=== PATIENT | male | born 1965 | race Caucasian/White ===

== ENCOUNTER 2016-09-27 00:51 | Emergency (ER) | payer BC ==
[~2016-09-27] VITALS: Ht 180.3 cm; Wt 88.6 kg
[~2016-09-27 00:51] MED LIST: ASPIRIN 32325 MG/TAB PO; LEVAQUIN 750MG750 M1 PO; NORCO 325 MG-51 TAB PO; PERCOCET 325 MG1 TA2 PO; PERCOCET 325 MG1 TA3 PO; PREDNISONE20 MG PO; RT ADVAIR 228 DISKUS IH; RT SPIRIVA18 MCG IH; TYLENOL 8 HR PO
[2016-09-27 00:57] VITALS: TEMP 97.7
[2016-09-27 01:51] LABS: BASO # 0.1 (0.0-0.2); BASO % 0.6 % (0.0-2.0); EOS # 0.4 (0.0-0.7); EOS % 4.4 % (0-4.0); GRAN # 5.7 (1.4-6.5); GRAN % 70.8 % (42.2-75.2); HEMATOCRIT 41.6 % (42.0-52.0); HEMOGLOBIN 14.5 g/dl (13.5-18.0); LYMPH # 1.3 (1.2-3.4); LYMPH % 16.3 % (20.0-51.0); MEAN CELL VOLUME 96 fl (80.0-100.0); MEAN CORPUSCULAR HEMOGLOBIN 34 pg (27.0-31.0); MEAN CORPUSCULAR HGB CONC 35 g/dl (33.0-37.0); MEAN PLATELET VOLUME 8.8 fl (7.4-10.4); MONO # 0.6 (0.1-0.6); MONO % 7.6 % (1.7-9.3); PLATELET COUNT 186 K/mm3 (130-400); RED BLOOD COUNT 4.32 M/mm3 (4.20-5.60); REDCELL DISTRIBUTION WIDTH-CV 12.9 % (11.5-14.5)
[2016-09-27 01:55] LABS: PROTHROMBIN TIME 10.7 SECONDS (9.7-12.8)
[2016-09-27 01:57] LABS: PARTIAL THROMBOPLASTIN TIME 28.6 SECONDS (26.0-37.0)
[2016-09-27 02:03] LABS: ADJUSTED CALCIUM 9.5 mg/dL (8.4-10.2); BILIRUBIN,TOTAL 0.8 mg/dL (0.0-1.0); CALCIUM 9.5 mg/dL (8.4-10.2); CREATININE, serum 0.8 mg/dL (0.66-1.25); POTASSIUM 4.4 mmol/L (3.4-5.0); TOTAL PROTEIN 7.3 gm/dL (6.4-8.2)
[2016-09-27] MEDS ORDERED: PERCOCET 325 MG1 TA2 PO (03:19)
[2016-09-27 03:26] VITALS: BP 119/95; PULSE 64
== END 2016-09-27 04:28 | disposition home or self-care (01) ==
LOC: COL.ER 00:51
PROVIDERS: Emergency Medicine
DX: S20.411A Abrasion of right back wall of thorax, initial encounter (principal); S20.221A Contusion of right back wall of thorax, initial encounter; S30.810A Abrasion of lower back and pelvis, initial encounter; S30.0XXA Contusion of lower back and pelvis, initial encounter; S00.81XA Abrasion of other part of head, initial encounter; S00.83XA Contusion of other part of head, initial encounter; Z87.891 Personal history of nicotine dependence; V48.4XXA Person boarding or alighting a car injured in noncollision transport accident, initial encounter; Y92.488 Other paved roadways as the place of occurrence of the external cause; J43.8 Other emphysema; J98.11 Atelectasis
CPT/HCPCS: A9284; J1170; J3010; J7030; Q9967

== ENCOUNTER 2019-03-07 15:51 | Emergency (ER) | payer BC ==
[~2019-03-07] VITALS: Ht 177.8 cm; Wt 95.5 kg
[2019-03-07 16:09] VITALS: BP 120/88
[2019-03-07 18:33] LABS: COLLECTION METHOD CLEAN CATCH
[2019-03-07 18:38] LABS: BASO # 0.1 (0.0-0.2); BASO % 0.7 % (0.0-2.0); EOS # 0.3 (0.0-0.7); EOS % 3.5 % (0-4.0); GRAN # 6.2 (1.4-6.5); GRAN % 74.5 % (42.2-75.2); HEMATOCRIT 41.2 % (42.0-52.0); HEMOGLOBIN 14.1 g/dl (13.5-18.0); LYMPH # 1.1 (1.2-3.4); LYMPH % 12.9 % (20.0-51.0); MEAN CELL VOLUME 92 fl (80.0-100.0); MEAN CORPUSCULAR HEMOGLOBIN 32 pg (27.0-31.0); MEAN CORPUSCULAR HGB CONC 34 g/dl (33.0-37.0); MEAN PLATELET VOLUME 9.1 fl (7.4-10.4); MONO # 0.7 (0.1-0.6); PLATELET COUNT 214 K/mm3 (130-400); RED BLOOD COUNT 4.47 M/mm3 (4.20-5.60); REDCELL DISTRIBUTION WIDTH-CV 12.8 % (11.5-14.5)
[2019-03-07 18:41] LABS: MUCOUS Present /lpf; PH 6 (5-8); SQUAMOUS EPITHELIAL None Seen /hpf; URINE APPEARANCE Clear; URINE BACTERIA None Seen /hpf; URINE BILIRUBIN Negative (NEGATIVE); URINE BLOOD Negative (NEGATIVE); URINE COLOR Straw; URINE GLUCOSE Negative (NEGATIVE); URINE KETONE Negative (NEGATIVE); URINE LEUKOCYTE ESTERASE Negative (NEGATIVE); URINE NITRATE Negative (NEGATIVE); URINE PROTEIN(semi-quant) Negative (NEGATIVE); URINE RBC None Seen /hpf; URINE UROBILINOGEN Negative (NEGATIVE)
[2019-03-07 18:49] LABS: ALBUMIN 4.1 gm/dL (3.5-5.0); BILIRUBIN,TOTAL 0.3 mg/dL (0.0-1.0); C-REACTIVE PROTEIN 1.4 mg/dL (0.0-0.9); CALCIUM 9.7 mg/dL (8.4-10.2); CREATININE, serum 0.93 (0.66-1.25); POTASSIUM 4.1 mmol/L (3.4-5.0); TOTAL PROTEIN 7.5 gm/dL (6.4-8.2)
[2019-03-07] MEDS ORDERED: PREDNISONE10 MG PO (19:43)
[2019-03-07] MEDS ORDERED: NORCO 325 MG-51 TAB PO (19:43)
[2019-03-07 20:15] VITALS: PULSE 66; TEMP 98
== END 2019-03-07 20:15 | disposition home or self-care (01) ==
LOC: COL.ER 15:51
PROVIDERS: Emergency Medicine
DX: S29.011A Strain of muscle and tendon of front wall of thorax, initial encounter (principal); J44.1 Chronic obstructive pulmonary disease with (acute) exacerbation; R09.1 Pleurisy; Z79.82 Long term (current) use of aspirin; X50.0XXA Overexertion from strenuous movement or load, initial encounter
CPT/HCPCS: J1885; J3010; J7512

== ENCOUNTER 2021-05-14 09:03 | Emergency (ER) | payer BC ==
[~2021-05-14] VITALS: Ht 180.3 cm; Wt 77.3 kg
[~2021-05-14 09:03] MED LIST changes: +PREDNISONE10 MG PO
[2021-05-14 09:11] VITALS: TEMP 98.2
[2021-05-14] MEDS ORDERED: CEPHALEXIN500 M1 PO (09:38)
[2021-05-14 10:37] VITALS: BP 112/81; PULSE 56
== END 2021-05-14 10:40 | disposition home or self-care (01) ==
LOC: COL.ER 09:03
DX: S90.454A Superficial foreign body, right lesser toe(s), initial encounter (principal); J44.9 Chronic obstructive pulmonary disease, unspecified; I10 Essential (primary) hypertension; Z87.891 Personal history of nicotine dependence; Z79.52 Long term (current) use of systemic steroids; W45.8XXA Other foreign body or object entering through skin, initial encounter; Y93.01 Activity, walking, marching and hiking

== ENCOUNTER 2021-12-16 08:08 | Inpatient (IN) | payer BC ==
[~2021-12-16] VITALS: Ht 175.3 cm; Wt 71.0 kg
[2021-12-16] VITALS (7 sets, daily range): BP systolic 108–131; BP diastolic 60–79; PULSE 61–93; TEMP 97.4–98.4
[~2021-12-16 08:08] MED LIST changes: +CEPHALEXIN500 M1 PO
[2021-12-16 08:35] LABS: BASO # 0.1 K/mm3 (0.0-0.2); BASO % 0.3 % (0.0-2.0); EOS # 0.1 K/mm3 (0.0-0.7); EOS % 0.4 % (0.0-4.0); GRAN # 16.6 K/mm3 (1.4-6.5); GRAN % 89.2 % (42.2-75.2); LYMPH # 0.7 K/mm3 (1.2-3.4); LYMPH % 3.6 % (20.0-51.0); MEAN CELL VOLUME 95 fl (80.0-100.0); MEAN CORPUSCULAR HEMOGLOBIN 32 pg (27-31); MEAN CORPUSCULAR HGB CONC 34 g/dl (33.0-37.0); MEAN PLATELET VOLUME 8.8 fl (7.4-10.4); MONO # 1.1 K/mm3 (0.1-0.6); MONO % 6.1 % (1.7-9.3); PLATELET COUNT 413 K/mm3 (130-400); RED BLOOD COUNT 3.74 M/mm3 (4.20-5.60); REDCELL DISTRIBUTION WIDTH-CV 12.8 % (11.5-14.5)
[2021-12-16 08:36] LABS: HEMATOCRIT 35.6 % (42.0-52.0)
[2021-12-16 08:52] LABS: ALANINE AMINOTRANSFERASE 85 U/L (0-55); ALBUMIN 2.5 gm/dL (3.5-5.0); ALKALINE PHOSPHATASE 195 U/L (40-150); ANION GAP 13 mmol/L (7-16); AST,SGOT 37 U/L (5-34); BILIRUBIN,TOTAL 0.6 mg/dL (0.2-1.2); BLOOD UREA NITROGEN 13 mg/dL (8-26); CALCIUM 9.3 mg/dL (8.4-10.2); CARBON DIOXIDE 27 mmol/L (22-29); CHLORIDE 95 mmol/L (98-107); CREATININE, serum 0.78 mg/dL (0.72-1.25); GLUCOSE 115 mg/dL (70-99); POTASSIUM 3.7 mmol/L (3.5-4.5); SODIUM 135 mmol/L (136-145); TOTAL PROTEIN 7.3 gm/dL (6.2-8.1)
[2021-12-16 09:00] LABS: TROPONIN-I < 0.010 ng/mL (0.00-0.033)
[2021-12-16] MEDS ORDERED: MOBIC15 MG PO (11:11)
--- NOTE | 2021-12-16 14:00 | NUR ---
PATIENT RECIEVED FROM ER DEPT IN STABLE CONDITION. FLUIDS AND MEDICATIONS GIVEN ORDERED. 3L O2 VIA NC AT THIS TIME. VITALS WNL. NO SIGNS OF DISTRESS. DENIES PAIN AT THIS TIME. ASSESSMENTS COMPLETED. NO SKIN ISSUES IDENTIFIED. PRODUCTIVE COUGH. AFEBRILE. ABLE TO AMBULATE ON OWN. ENCOURAGED TO ASK FOR ASSIST. ON TELE. CONTINENT. INSTRUCTED DETECTIVE [employer] SECTION NU[employer] USE, ROOM AMENITIES, AND HOW TO ORDER MEALS OVER PHONE. DENIES ANY NEEDS AT THIS TIME
[2021-12-16] MEDS ORDERED: TRELEGY ELLIPT1 EACH IH (16:47)
[2021-12-16] MEDS ORDERED: TRELEGY ELLIPT1 EACH INH (16:48)
[2021-12-16] MEDS ORDERED: COZAAR 25MG25 MG/TAB PO (16:48)
[2021-12-16] MEDS ORDERED: NEURONTIN300 MG/CAP PO (16:49)
[2021-12-16] MEDS ORDERED: PRILOSEC 20MG20 MG PO (16:50)
[2021-12-16] MEDS ORDERED: PROAIR HFA0.09 MG/AC INH (16:50)
[2021-12-16] MEDS ORDERED: MOBIC 7.5MG7.5 MG PO (16:51)
[2021-12-16] MEDS ORDERED: ZOLOFT 50MG50 MG PO (16:52)
[2021-12-16] MEDS ORDERED: THEO-DUR 3300 MG/TAB PO (16:53)
--- NOTE | 2021-12-17 02:27 | NUR ---
Shift assessment performed. VSS. Patient alert and oriented. Patient complains of chest pain related to coughing. Patient has a productive cough with yellowish sputum. Patient experiencing night sweats but continues to be afebrile. Patient requested Tylenol. Hospitalist called for tylenol and a sleep aid. Melatonin and Tylenol were administered. Patient denies any further pain or complaints at this time. Will continue to monitor.
[2021-12-17 03:32] VITALS: BP 132/72; PULSE 58; TEMP 97.9
[2021-12-17 07:03] LABS: HEMOGLOBIN 10.6 g/dl (13.5-18.0); MEAN CELL VOLUME 95 fl (80.0-100.0); MEAN CORPUSCULAR HEMOGLOBIN 32 pg (27-31); MEAN CORPUSCULAR HGB CONC 34 g/dl (33.0-37.0); MEAN PLATELET VOLUME 9.2 fl (7.4-10.4); PLATELET COUNT 412 K/mm3 (130-400); RED BLOOD COUNT 3.31 M/mm3 (4.20-5.60); REDCELL DISTRIBUTION WIDTH-CV 13.1 % (11.5-14.5)
[2021-12-17 07:07] LABS: HEMATOCRIT 31.3 % (42.0-52.0)
[2021-12-17 07:23] LABS: ALBUMIN 2.1 gm/dL (3.5-5.0); BILIRUBIN,TOTAL 0.1 mg/dL (0.2-1.2); CREATININE, serum 0.72 mg/dL (0.72-1.25); POTASSIUM 3.4 mmol/L (3.5-4.5); TOTAL PROTEIN 6.7 gm/dL (6.2-8.1)
[2021-12-17 07:39] LABS: BAND 2 % (0-10); LYMPHOCYTE 1 % (20.0-51.0); NEUTROPHILS 95 % (42.0-75.2); PLATELET ESTIMATE INCREASED (NORMAL)
[2021-12-17 07:59] VITALS: BP 135/59; PULSE 86; TEMP 98.1
--- NOTE | 2021-12-17 09:28 | NUR ---
car worker met with patient to discuss discharge plan. Patient currently lives at home with his Lola ([phone]) in [place]. Patient is independent with his ADL's and does not utilize any medical equipment to assist with mobility. Patient reports that he had a sleep study done years ago and at that time was told he had sleep apnea but couldn't afford to get a CPAP machine. Patient follows Dr. Long for him pulm. needs and "thinks" that the doctor recommended oxygen for night use but isn't sure. PCP is Dr. Mejía and he uses [facility] for medications. Patient does not have any trouble affording his medications. States he does not have a DPO[employer] established at this time but would like to create one listing his daughter Stephanie Watkins as his primary agent and his as his secondary agent. DPOA-HC form left with patient and education provided. Patient will work on completing form after he can get Stephanie's phone number. Patient is planning on returning home once medically ready. Discharge plan: Home * may need home oxygen set up*
[2021-12-17 12:00] VITALS: BP 139/77; TEMP 97.5
--- NOTE | 2021-12-17 13:03 | NUR ---
stopped by but nothing needed at this time.
[2021-12-17 15:51] VITALS: BP 127/63; PULSE 89; TEMP 98.3
[2021-12-17 20:17] VITALS: BP 118/60; PULSE 84; TEMP 98
--- NOTE | 2021-12-17 22:43 | NUR ---
Received report from day shift. Patient resting in bed, alert and oriented. VSS. Patient reports headache at this time. PM meds given. Respiratory attempted to set up bipap with patient for HS. Patient became restless and respiratory reported patient had a panic attack. Bipap was removed and O2 monitor placed on patient to monitor O2 saturation throughout night. Patient denies any SOB. Will continue to monitor.
[2021-12-18 00:11] VITALS: BP 119/73; PULSE 59; TEMP 98.4
[2021-12-18 04:25] VITALS: BP 147/74; PULSE 63; TEMP 97.9
[2021-12-18 08:00] VITALS: BP 102/70; PULSE 102; TEMP 98.2
[2021-12-18 11:47] VITALS: BP 149/85; PULSE 95; TEMP 98
[2021-12-18] MEDS ORDERED: DOXYCYCLINE 10100 MG PO (12:14)
[2021-12-18] MEDS ORDERED: OMNICEF 300MG300 MG PO (12:14)
[2021-12-18] MEDS ORDERED: PREDNISONE10 MG PO (12:16)
--- NOTE | 2021-12-18 13:31 | NUR ---
LAST DOSES OF IV STEROIDS AND ANTIBIOTICS FINISHED FOR PT. IV REMOVED AT THIS TIME TO PREPARE FOR DISCHARGE TO HOME.
--- NOTE | 2021-12-18 13:32 | NUR ---
PT COMPLETED TEST WALK WITH RT AND PASSED WITH NO ISSUES. PT DENIED SOB AND O2 SAT REMAINED STABLE.
== END 2021-12-18 13:43 | disposition home or self-care (01) | DRG 871 ==
LOC: COL.ER 08:08 → SURG 10:23
PROVIDERS: Personal Emergency Response Attendant; Physician Assistant; ADMIT Internal Medicine
DX: A41.9 Sepsis, unspecified organism (principal); J96.01 Acute respiratory failure with hypoxia; J18.9 Pneumonia, unspecified organism; J44.0 Chronic obstructive pulmonary disease with (acute) lower respiratory infection; J44.1 Chronic obstructive pulmonary disease with (acute) exacerbation; I10 Essential (primary) hypertension; K21.9 Gastro-esophageal reflux disease without esophagitis; G47.33 Obstructive sleep apnea (adult) (pediatric); F32.A Depression, unspecified; D64.9 Anemia, unspecified; E83.52 Hypercalcemia; Z87.891 Personal history of nicotine dependence; Z79.82 Long term (current) use of aspirin; Z20.822 Contact with and (suspected) exposure to COVID-19
CPT/HCPCS: 99223-AI; 99232-AI; 99239; J0696; J1650; J1956; J2270; J2405; J2930; J7030; Q9967

== ENCOUNTER → 2024-01-23 | Outpatient (CLI) | payer BC ==
[~2024-01-23] MED LIST changes: +COZAAR 25MG25 MG/TAB PO; +DOXYCYCLINE 10100 MG PO; +MOBIC 7.5MG7.5 MG PO; +MOBIC15 MG PO; +NATURAL IRON65 MG PO; +NEURONTIN300 MG/CAP PO; +OMNICEF 300MG300 MG PO; +PRILOSEC 20MG20 MG PO; +PROAIR HFA0.09 MG/AC INH; +THEO-DUR 3300 MG/TAB PO; +TRELEGY ELLIPT1 EACH IH; +TRELEGY ELLIPT1 EACH INH; +ZOLOFT 50MG50 MG PO
== END ==
LOC: COL.RAD 07:23
DX: J92.9 Pleural plaque without asbestos (principal); B44.1 Other pulmonary aspergillosis